=== PATIENT | female | born 1980 | race Caucasian/White ===

== ENCOUNTER 2021-01-25 09:06 | Outpatient (CLI) | payer OTHER, SELFPAY ==
--- NOTE | 2021-01-31 12:40 | WPDHOLTEREM ---
Holter/Event Monitor Holter/Event Monitor Date of procedure: 01/25/21 Holter/Event Procedure: 48 Hr Holter Monitor Indications: Tachy/Skyler Conclusion: 1. 48 hour holter monitor on 01/25/21. 2. Underlying rhythm is sinus rhythm. HR range 40-158 bpm; average HR 75 bpm. 3. There are 4 premature supraventricular complexes and 1 supraventricular couplet. No supraventricular tachycardia. 4. There is 1 premature ventricular complex. No ventricular tachycardia. 5. No sinoatrial or atrioventricular blocks. No significant pauses greater than 2 seconds. 6. No symptoms available for correlation.
== END 2021-01-25 09:07 | disposition home or self-care (01) ==
PROVIDERS: PCP Internal Medicine; Visit Provider Internal Medicine
DX: R00.0 Tachycardia, unspecified (principal); R00.1 Bradycardia, unspecified; R06.02 Shortness of breath
CPT/HCPCS: 93225; 93226

== ENCOUNTER 2021-01-31 07:33 | Outpatient (CLI) | payer OTHER, SELFPAY ==
--- NOTE | 2021-01-31 07:42 | ECHO_ITS ---
Patient Info Name: Rosemarie Gordon Age: 40 years : 1980 Gender: Female Ht: 65 in Wt: 160 lbs BSA: 1.84 m2 HR: 89 bpm BP: 118 / 79 mmHg Heart Rhythm: Sinus Rhythm Exam Date: 01/31/2021 7:53 AM Exam Location: [facility] Patient Status: Outpatient Admit Date: 01/31/2021 Staff Ordering Physician: Morales Lee MD Teaching Associate: Ginna Carr RDCS Attending Provider: Morales Lee MD Referring Physician: Jesus STORY; Exam Type: CA echo doppler color flow Study Info Indications - MURMUR, CHEST PAIN Complete two-dimensional, color flow and Doppler transthoracic echocardiogram is performed. Summary 1. Complete two-dimensional, color flow and Doppler transthoracic echocardiogram is performed. 2. Left ventricular chamber dimension is normal. 3. Left ventricular systolic function is normal, estimated at 55-60%. 4. The left ventricular diastolic function is grade I diastolic dysfunction. 5. E/e' 8 is minimally elevated. Left Ventricle E/e' 8 is minimally elevated. Left ventricular chamber dimension is normal. Left ventricular systolic function is normal, estimated at 55-60%. The left ventricular diastolic function is grade I diastolic dysfunction. Right Ventricle Right ventricular chamber dimension is normal. Right ventricular systolic function is normal. Left Atria Left atrial chamber dimension is normal. Right Atria Right atrial chamber dimension is normal. Aortic Valve The aortic valve is trileaflet. There is no aortic valve stenosis. There is no aortic valve regurgitation. Pulmonic Valve There is no pulmonic regurgitation. Mitral Valve There is no mitral valve stenosis. There is no mitral valve regurgitation. Tricuspid Valve There is no tricuspid valve regurgitation. Pericardium/Pleural There is no pericardial effusion. Inferior Vena Cava Normal inferior vena cava with >50% collapse upon inspiration consistent with normal right atrial pressure, 5 mmHg. Aorta The aortic root size at the sinus of Valsalva is normal. Left Ventricular Outflow Tract Name Value Normal LVOT 2D LVOT Diameter 1.8 cm LVOT Doppler LVOT Peak Gradient 4 mmHg LVOT Mean Gradient 2 mmHg LVOT VTI 19 cm LVOT VTI/AV VTI Ratio 0.8 LVOT Stroke Volume 46 ml LVOT CO 3.1 l/min LVOT CI 1.7 l/min/m2 Pulmonic Valve Name Value Normal RVOT Doppler RVOT Peak Gradient 2 mmHg PV Doppler PV Peak Gradient 4 mmHg Mitral Valve Name
== END 2021-01-31 07:34 | disposition home or self-care (01) ==
LOC: ANHCARD 07:39
PROVIDERS: PCP Internal Medicine; Visit Provider Internal Medicine
DX: I34.1 Nonrheumatic mitral (valve) prolapse (principal); R00.0 Tachycardia, unspecified; R00.1 Bradycardia, unspecified; R01.1 Cardiac murmur, unspecified; R06.02 Shortness of breath; R07.9 Chest pain, unspecified
CPT/HCPCS: 93306

== ENCOUNTER 2021-04-17 10:05 | Outpatient (CLI) | payer OTHER, SELFPAY ==
--- NOTE | ~2021-04-17 | CT_ITS ---
EXAMINATION: CT chest high resolution wo/w EXAM DATE: 04/17/2021 10:55 INDICATION: R05.9 - Cough, unspecified. TECHNIQUE: Spiral CT of the chest without and then with intravenous injection of 75 mL Omnipaque 350. HRCT. Axial, coronal and sagittal images of the chest were reviewed. Coronal maximum intensity pixe l images of chest reviewed. The dose-length product (DLP) for this examination was 398.96 mGy-cm. T he exposure was tailored according to patient size (auto mA exposure control), and iterative reconstr uction (ASIR) was used as additional dose reduction technique. There is no prior study for compariso n. FINDINGS: No evidence of interstitial lung disease on the HRCT. No central pulmonary emboli on the co ntrast-enhanced scan. The lungs are clear. There are no pleural or pericardial effusions. Tracheo bronchial tree is patent. There is no mediastinal, hilar or axillary lymphadenopathy. There is no pneumothorax. Heart normal in size. No evidence of coronary arterial calcification. Upper abdom en is unremarkable. 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 IMPRESSION: Unremarkable CT chest examination. Reviewed, dictated and finalized at location [facility] [employer] [facility]
== END 2021-04-17 10:06 ==
LOC: MICIMG 10:06
PROVIDERS: PCP Internal Medicine; Visit Provider Internal Medicine
DX: R05.9 Cough, unspecified (principal); R07.9 Chest pain, unspecified; R06.02 Shortness of breath
CPT/HCPCS: 71270; Q9967

== ENCOUNTER → 2021-06-18 08:41 | Outpatient (CLI) | payer OTHER, SELFPAY ==
[2021-06-18 11:52] LABS: Influenza A QL RT-PCR Negative (Negative); Influenza B QL RT-PCR Negative (Negative); SARS-CoV-2 RNA PCR Negative
== END ==
PROVIDERS: PCP Internal Medicine; Visit Provider Internal Medicine
DX: R68.89 Other general symptoms and signs (principal); Z20.822 Contact with and (suspected) exposure to COVID-19
CPT/HCPCS: 87502; C9803; U0003; U0005